=== PATIENT | male | born 1980 | race Caucasian/White ===

== ENCOUNTER 2021-05-26 18:32 | Emergency (ER) | payer SELFPAY ==
[~2021-05-26] VITALS: Ht 175.3 cm; Wt 115.7 kg
[2021-05-26 19:00] VITALS: BP 155/191
--- NOTE | 2021-05-26 19:03 | NUR ---
pt ambulated to lobby with steady gait
[2021-05-26] MEDS ORDERED: ACET-10509 PO (22:01)
[2021-05-26] MEDS ORDERED: LID5T TP (22:01)
[2021-05-26] MEDS ORDERED: ACETAMINOPHEN EXTRA STRENGTH 500 MG TAB ONE (22:22)
[2021-05-26] MEDS: ACETAMINOPHEN EXTRA STRENGTH 500 MG TAB PO ONE (22:23)
--- NOTE | 2021-05-26 22:26 | NUR ---
Patient discharged with v/s stable. Written and verbal after care instructions given and explained. Patient alert, oriented and verbalized understanding of instructions. Ambulatory with steady gait. All questions addressed prior to discharge. ID band removed. Patient advised to follow up with PMD. Rx of lidoderm patch and tylenol given. Patient educated on indication of medication including possible reaction and side effects. Opportunity to ask questions provided and answered.
[2021-05-27] MEDS ORDERED: LIDOCAINE 5% 1 EA PATCH TP SCH (09:00)
== END 2021-05-26 22:26 | disposition home or self-care (01) ==
LOC: MED 18:32
DX: S39.012A Strain of muscle, fascia and tendon of lower back, initial encounter (principal); M51.36 Other intervertebral disc degeneration, lumbar region; V98.8XXA Other specified transport accidents, initial encounter; Y93.89 Activity, other specified; Y92.89 Other specified places as the place of occurrence of the external cause; Y99.8 Other external cause status
CPT/HCPCS: 72131; 99284